=== PATIENT | female | born 1965 | race Caucasian/White ===

== ENCOUNTER 2019-02-06 15:33 | Inpatient (IN) | payer OTHER ==
[~2019-02-06 15:33] MED LIST: METFORMIN HCL1000 M2 PO
== END 2019-02-13 11:33 | disposition home or self-care (01) | DRG 742 ==
LOC: O/R 02-10 05:02 → OB/GYN 02-10 05:02 → SURH 02-10 12:06 → OB/GYN 02-13 11:33
PROVIDERS: ADMIT Obstetrics & Gynecology Gynecologic Oncology
PROC: 0UB50ZX Excision of Right Fallopian Tube, Open Approach, Diagnostic (ICD-10-PCS; 2019-02-10)
PROC: 0UB20ZZ Excision of Bilateral Ovaries, Open Approach (ICD-10-PCS; 2019-02-10)
PROC: 0DBU0ZZ Excision of Omentum, Open Approach (ICD-10-PCS; 2019-02-10)
PROC: 0UT90ZZ Resection of Uterus, Open Approach (ICD-10-PCS; principal; 2019-02-10 08:30)
DX: D25.1 Intramural leiomyoma of uterus (principal); C56.2 Malignant neoplasm of left ovary; N72 Inflammatory disease of cervix uteri; K66.8 Other specified disorders of peritoneum; R59.0 Localized enlarged lymph nodes; Z30.2 Encounter for sterilization